=== PATIENT | female | born 1995 | race Caucasian/White ===

== ENCOUNTER 2022-05-13 07:08 | Emergency (ER) ==
[~2022-05-13] VITALS: Ht 167.6 cm; Wt 96.5 kg
[2022-05-13 07:09] VITALS: BP 152/91
[2022-05-13] MEDS ORDERED: VITA250T4 PO (07:39)
[2022-05-13] MEDS ORDERED: [UNRECOGNIZED DRUG - REMARK] PO (07:39)
[2022-05-13] MEDS ORDERED: BIOT1CAP2 PO (07:39)
== END 2022-05-13 12:04 | disposition left against medical advice (07) ==
LOC: M ED 07:08
DX: Z53.21 Procedure and treatment not carried out due to patient leaving prior to being seen by health care provider (principal)